=== PATIENT | male | born 1955 | race Caucasian/White ===

== ENCOUNTER → 2020-03-09 | Emergency (ER) | payer BC, OTHER ==
[~2020-03-09] VITALS: Ht 167.6 cm; Wt 71.7 kg
[2020-03-09 11:09] VITALS: BP 104/68
--- NOTE | 2020-03-09 11:23 | Emergency Room Report ---
History of Present Illness General Chief Complaint: Palpitations Source: Patient Present Illness HPI Disclaimer: Please note that this report is being documented using [employer] technology. This can lead to erroneous entry secondary to incorrect interpretation by the dictating instrument. HPI: 65-year-old male history of pretension, high cholesterol presented for palpitations. He has had intermittent palpitations for the past 2 weeks. Was seen by his button sewer hand last week and started on a Holter monitor. He did remove the monitor yesterday. This morning while meditating he developed palpitations and mild chest tightness. Denies nausea vomiting fever cough or shortness of breath at this time. He also recently had his losartan dosage increased by his button sewer hand. He has a stress test scheduled next week. He has no known cardiac history. PMH: As above PSH: Reviewed Social Hx: Former smoker denies drinking or illicit drug use Allergies: Coded Allergies: PANTERA INHIBITORS (Verified Allergy, Unknown, 03/09/20) PENICILLINS (Verified Allergy, Unknown, 03/09/20) SULFA (SULFONAMIDE ANTIBIOTICS) (Verified Allergy, Unknown, 03/09/20) COVID-19 Screening Contact w/high risk pt: No Recent Travel to affected area: No Experienced COVID-19 symptoms?: No COVID-19 Testing performed CLAM TREADER: No Patient History Reviewed Nursing Documentation: PMH: Agreed; PSxH: Agreed Nursing Documentation-PMH Past Medical History: No History, Except For Hx Hypertension: Yes - high cholesterol, HIV + Review of Systems All Other Systems: negative except mentioned in HPI Physical Exam Vital Signs Date Time Temp Pulse Resp B/P (MAP) Pulse Ox O2 Delivery O2 Flow Rate FiO2 03/09/20 10:57 98.1 105 20 104/68 (80) 97 Room Air Sp02 EP Interpretation: reviewed, normal General Appearance: well appearing, no apparent distress Head: normocephalic, atraumatic Eyes: bilateral eye PERRL, bilateral eye EOMI ENT: hearing grossly normal, moist mucus membranes Neck: full range of motion, supple Respiratory: lungs clear, normal breath sounds, no rhonchi, no respiratory distress, no retraction, no wheezing Cardiovascular #1: normal peripheral pulses, regular rate, rhythm, no murmur, other - Heart rate 92 Gastrointestinal: non tender, soft, non-distended, no guarding Neurologic: alert, oriented x3, no focal defects Skin: normal color, warm/dry Medical Decision Making ER Course MDM: Differential diagnosis included but not limited to palpitations, anxiety, angina, muscle spasm to name a few Clinical course-patient cardiac monitoring, pulse oximetry, EKG laboratory studies chest x-ray ordered. Chest x-ray showed no acute disease. EKG had lateral T wave inversions. Troponin was negative. Patient feeling improved after observation in the ER. On my reassessment vital signs were stable. Blood pressure stable. I spoke with patient's button sewer hand, Leanne who is currently following patient as an outpatient. He does state these EKG changes are chronic, he is following and as patient has stress test next week he felt comfortable having the patient stay in the hospital or continue to follow-up as an outpatient. I discussed this with the patient I did offer admission for observation and further cardiac testing however patient wished to be discharged home with outpatient follow-up. Will return for any worsening or recurrent symptoms. Labs - Laboratory Tests Test 03/09/20 11:30 White Blood Count 6.2 K/UL (4.8-10.8) Red Blood Count 4.59 M/UL (4.70-6.10) L Hemoglobin 14.6 G/DL (14.2-18.0) Hematocrit 40.1 % (42.0-52.0) L Mean Corpuscular Volume 87 FL (80-99) Mean Corpuscular Hemoglobin 31.9 PG (27.0-31.0) H Mean Corpuscular Hemoglobin Concent 36.5 G/DL (32.0-36.0) H Red Cell Distribution Width 11.2 % (11.6-14.8) L Platelet Count 180 K/UL (150-450) Mean Platelet Volume 6.1 FL (6.5-10.1) L Neutrophils (%) (Auto) % (45.0-75.0) Lymphocytes (%) (Auto) % (20.0-45.0) Monocytes (%) (Auto) % (1.0-10.0) Eosinophils (%) (Auto) % (0.0-3.0) Basophils (%) (Auto) % (0.0-2.0) Differential Total Cells Counted 100 Neutrophils % (Manual) 55 % (45-75) Lymphocytes % (Manual) 36 % (20-45) Monocytes % (Manual) 8 % (1-10) Eosinophils % (Manual) 1 % (0-3) Basophils % (Manual) 0 % (0-2) Band Neutrophils 0 % (0-8) Platelet Estimate Adequate Platelet Morphology Normal Red Blood Cell Morphology Normal Sodium Level 144 MMOL/L (136-145) Potassium Level 4.3 MMOL/L (3.5-5.1) Chloride Level 108 MMOL/L (98-107) H Carbon Dioxide Level 29 MMOL/L (21-32) Anion Gap 8 mmol/L (5-15) Blood Urea Nitrogen 25 mg/dL (7-18) H Creatinine 1.2 MG/DL (0.55-1.30) Estimated Glomerular Filtration Rate > 60 mL/min (>60) Glucose Level 115 MG/DL (74-106) H Calcium Level 9.0 MG/DL (8.5-10.1) Total Bilirubin 0.9 MG/DL (0.2-1.0) Aspartate Amino Transferase (AST) 32 U/L (15-37) Alanine Aminotransferase (ALT) 48 U/L (12-78) Alkaline Phosphatase 76 U/L (46-116) Troponin I 0.006 ng/mL (0.000-0.056) Total Protein 6.6 G/DL (6.4-8.2) Albumin 3.7 G/DL (3.4-5.0) Globulin 2.9 g/dL Albumin/Globulin Ratio 1.3 (1.0-2.7) On reevaluation: Patient in no acute distress nontoxic-appearing no complaints Plan-discharge home follow-up PMD and cardiology. EKG Diagnostic Results Rate: normal Rhythm: NSR ST Segments: other - T waves inverted laterally, Other Impression Left atrial enlargement, left anterior fascicular block, LVH Rhythm Strip Diag. Results EP Interpretation: yes Rate: 90 Rhythm: NSR, no ectopy Chest X-Ray Diagnostic Results Chest X-Ray Diagnostic Results : Chest X-Ray Ordered: Yes # of Views/Limited/Complete: 1 View Indication: Chest Pain Interpretation: no consolidation, no effusion, no pneumothorax Impression: No acute disease Last Vital Signs Date Time Temp Pulse Resp B/P (MAP) Pulse Ox O2 Delivery O2 Flow Rate FiO2 03/09/20 11:09 98.1 93 20 104/68 97 Room Air Status: improved Disposition: HOME, SELF-CARE Condition: Improved Sushil Robles M.D. Mar 09, 2020 11:23
[2020-03-09 11:44] LABS: HEMATOCRIT 40.1 % (42.0-52.0); HEMOGLOBIN 14.6 G/DL (14.2-18.0); MEAN CORPUSCULAR VOLUME 87 FL (80-99); PLATELET COUNT 180 K/UL (150-450); RED BLOOD COUNT 4.59 M/UL (4.70-6.10); RED CELL DISTRIBUTION WIDTH 11.2 % (11.6-14.8); WHITE BLOOD COUNT 6.2 K/UL (4.8-10.8)
--- NOTE | 2020-03-09 11:47 | Diagnostic Imaging Report ---
Indication: Chest pain Technique: One view of the chest Comparison: none Findings: The heart is upper limits normal in size. The aorta is elongated. No definite acute infiltrates, effusions, or congestion. Impression: No acute process
[2020-03-09 11:58] LABS: ANION GAP 8 mmol/L (5-15); BLOOD UREA NITROGEN 25 mg/dL (7-18); CARBON DIOXIDE 29 MMOL/L (21-32); CHLORIDE 108 MMOL/L (98-107); CREATININE 1.2 MG/DL (0.55-1.30); POTASSIUM 4.3 MMOL/L (3.5-5.1); SODIUM 144 MMOL/L (136-145)
[2020-03-09 12:04] LABS: ALANINE AMINOTRANSFERASE 48 U/L (12-78); ALBUMIN 3.7 G/DL (3.4-5.0); ALBUMIN/GLOBULIN RATIO 1.3 (1.0-2.7); ALKALINE PHOSPHATASE 76 U/L (46-116); ASPARTATE AMINO TRANSFERASE 32 U/L (15-37); BILIRUBIN,TOTAL 0.9 MG/DL (0.2-1.0)
[2020-03-09 13:32] VITALS: BP 132/88
== END | disposition home or self-care (01) ==
LOC: EMR 11:23
DX: R00.2 Palpitations (principal); E78.00 Pure hypercholesterolemia, unspecified; Z88.0 Allergy status to penicillin; Z88.2 Allergy status to sulfonamides; Z87.891 Personal history of nicotine dependence; B20 Human immunodeficiency virus [HIV] disease
CPT/HCPCS: 36415; 71045; 80053; 84484; 85007; 85025; 93005; 99284; J7040